=== PATIENT | female | born 1985 | race Caucasian/White ===

== ENCOUNTER 2016-05-25 16:20 | Emergency (ER) | payer SELFPAY ==
[~2016-05-25] VITALS: Ht 157.5 cm; Wt 63.5 kg
[2016-05-25 16:54] VITALS: BP 123/69
== END 2016-05-25 17:30 | disposition left against medical advice (07) ==
LOC: ER 16:24
DX: Z75.3 Unavailability and inaccessibility of health-care facilities (principal)
CPT/HCPCS: A4606; Z7610